=== PATIENT | male | born 1955 | race Caucasian/White ===

== ENCOUNTER → 2025-01-31 15:38 | Outpatient (REF) | payer MEDICARE, SELFPAY | LOC: RAD 15:38 | PROVIDERS: ATTENDING PHYSICIAN Otolaryngology | DX: J34.2 Deviated nasal septum (principal); J33.0 Polyp of nasal cavity | CPT/HCPCS: 70486 ==

== ENCOUNTER 2025-03-17 06:29 | Day surgery (SDC) | payer MEDICARE, SELFPAY ==
[2025-03-07 14:16] VITALS: BMI 15.9
[2025-03-07 14:23] LABS: Hematocrit 41.6 % (39.0-52.0); Hemoglobin 14.0 g/dL (13.0-18.0); Mean Corp Hgb Conc. 33.7 g/dL (33.0-37.0); Mean Corpuscular Volume 89.8 fL (80.0-94.0); Platelet Count 212 10^3/uL (130-400); Red Cell Dist. Width 13.4 % (11.5-14.5)
[2025-03-17] VITALS (8 sets, daily range): BP systolic 98–134; BP diastolic 59–81; BMI 15.9
[2025-03-17] MEDS: NORMOSOL-R/PLASMALYTE-A 1000 IV (08:29)
== END 2025-03-17 13:46 | disposition home or self-care (01) ==
LOC: SDS 06:29
PROVIDERS: ATTENDING PHYSICIAN Otolaryngology; FAMILY PHYSICIAN Internal Medicine
DX: J32.0 Chronic maxillary sinusitis (principal); J32.2 Chronic ethmoidal sinusitis
CPT/HCPCS: 31257; 31254; 36415; 85027; 87070; 87071; 87075; 87076; 87077; 87176; 87186; 87205; 88304; 88311; 88312; 93005